=== PATIENT | male | born 1990 | race African-American/Black ===

== ENCOUNTER 2021-03-03 23:46 | Emergency (ER) | payer OTHER ==
[2021-03-04 01:12] LABS: Absolute Lymphocytes (CBC) 0.7 K/uL (0.7-4.9); Basophils % 0.6 % (0-1.3); Hematocrit 47.8 % (39.6-49.0); MPV 11.1 fL (7.6-11.3); RBC Red Blood Cell Count 5.57 M/uL (4.33-5.43)
[2021-03-04] MEDS ORDERED: ONDANSETRON 4 MG/2 ML VIAL ONE (01:27)
[2021-03-04] MEDS ORDERED: MORPHINE 4 MG/ML SYR ONE (01:27)
[2021-03-04] MEDS ORDERED: NA CHLORIDE 0.9% 1,000 ML ONE (01:27)
[2021-03-04 02:10] LABS: Bilirubin Direct 0.2 mg/dL (0-0.2); Bilirubin Total 0.7 mg/dL (0.2-1.0); Potassium 4.4 mmol/L (3.5-5.1); Protein, Total 7.5 g/dL (6.4-8.2)
[2021-03-04] MEDS ORDERED: PANTOPRAZOLE 40 MG INJ ONE (02:24)
--- NOTE | 2021-03-04 03:14 | ER ---
Nurse's Notes [facility] Name: Harpal Booker Age: 30 yrs Sex: Male : 1990 Arrival Date: 03/03/2021 Time: 23:47 Bed 6 Private MD: Diagnosis: Abdominal pain. Vomiting Presentation: 03/03 23:49 Chief complaint: Patient states: N/V/D, started yesterday evening and vomited blood bs2 today, upper abdomen pain on both sides. Coronavirus screen: Client denies travel out of the [place] in the last 14 days. At this time, the client does not indicate any symptoms associated with coronavirus-19. Ebola Screen: Patient negative for fever greater than or equal to 101.5 degrees Fahrenheit, and additional compatible Ebola Virus Disease symptoms Patient denies exposure to infectious person. Patient denies travel to an Ebola-affected area in the 21 days before illness onset. No symptoms or risks identified at this time. Initial Sepsis Screen: Does the patient meet any 2 criteria? No. Patient's initial sepsis screen is negative. Does the patient have a suspected source of infection? No. Patient's initial sepsis screen is negative. Risk Assessment: Do you want to hurt yourself or someone else? Patient reports no desire to harm self or others. Onset of symptoms was March 02, 2021. 23:49 Method Of Arrival: [employer] Enforcement: [place] [employer] bs2 23:49 Acuity: FRANCO 3 bs2 Triage Assessment: 23:52 General: Appears uncomfortable, slender, well groomed, well developed, well nourished, bs2 Behavior is calm, cooperative, appropriate for age, anxious. Pain: Complains of pain in right upper quadrant and left upper quadrant Pain does not radiate. Pain currently is 8 out of 10 on a pain scale. GI: Reports upper abdominal pain, diarrhea, intolerance of fluids, intolerance of food, nausea, vomiting. Historical: - Allergies: 23:52 No Known Allergies; bs2 - Home Meds: 23:52 None [Active]; bs2 - PMHx: 23:52 Asthma; bs2 - PSHx: 23:52 None; bs2 - Immunization history:: Adult Immunizations. - Social history:: Patient uses street drugs, marijuana, K2, Smoking status: Patient reports the use of cigarette tobacco products, denies chronic smoking, but will smoke occasionally. Screenin:54 Abuse screen: Denies threats or abuse. Denies injuries from another. Nutritional bs2 screening: No deficits noted. Tuberculosis screening: No symptoms or risk factors identified. Fall Risk None identified. Assessment: 03/04 03:14 General: Appears uncomfortable, slender, well groomed, well developed, well nourished, bs2 Behavior is calm, cooperative, appropriate for age. Pain: Complains of pain in abdomen Pain currently is 8 out of 10 on a pain scale. GI: Bowel sounds present X 4 quads. Abd is soft and non tender X 4 quads. Abd is non tender X 4 quads Reports upper abdominal pain, diarrhea, intolerance of fluids, intolerance of food, nausea, vomiting. 03:23 Reassessment: Dr. Ritter at bedside to discuss results with patient; patient reports lp1 continued nausea and abdominal pain; Verbal order for Zofran 4mg PO. Vital Signs: 03/03 23:49 BP 168 / 111 LA Sitting (auto/reg); Pulse 59 MON; Resp 22 S; Temp 97.8(O); Pulse Ox 98% bs2 on R/A; Weight 77.11 kg (R); Height 5 ft. 9 in. (175.26 cm) (R); Pain 8/10; 23:49 Body Mass Index 25.10 (77.11 kg, 175.26 cm) bs2 ED Course: 23:47 Patient arrived in ED. bs2 23:50 Dawson Ritter MD is Attending Physician. pkl 23:51 Triage completed. bs2 23:52 Arm band placed on right wrist. bs2 23:54 Patient has correct armband on for positive identification. Bed in low position. Side bs2 rails up X2. Pulse ox on. NIBP on. [employer] officers at bedside. 03/04 01:10 Basic Metabolic Panel Sent. bs2 01:10 CBC with Diff Sent. bs2 01:11 Hepatic Function Sent. bs2 01:11 Lipase Sent. bs2 02:30 CT Abd/Pelvis - IV Contrast Only In Process Unspecified. EDMS 03:14 No provider procedures requiring assistance completed. bs2 03:24 IV discontinued, No redness/swelling at site. Pressure dressing applied. lp1 Administered Medications: 01:10 Drug: NS 0.9% 1000 ml Route: IV; Rate: 1000 ml; Site: left antecubital; bs2 01:10 Drug: morphine 4 mg Route: IVP; Site: left antecubital; bs2 02:07 Follow up: Response: Pain is unchanged, physician notified bs2 01:10 Drug: Zofran (Ondansetron) 4 mg Route: IVP; Site: left antecubital; bs2 02:07 Follow up: Response: No adverse reaction bs2 02:07 Drug: ProTONIX (pantoprazole) 40 mg Route: IVP; Site: left antecubital; bs2 02:17 Follow up: Response: No adverse reaction bs2 03:23 Drug: Zofran (Ondansetron) 4 mg {Note: Verbal order.} Route: PO; lp1 03:25 Follow up: Response: Medication administered at discharge. lp1 Outcome: 03:13 Discharge ordered by . lesia 03:25 Discharged to Law Enforcement lp1 03:25 Condition: stable 03:25 Discharge instructions given to patient, Instructed on discharge instructions, follow up and referral plans. medication usage, Demonstrated understanding of instructions, follow-up care, medications, Prescriptions given X 1. 03:25 Discharged to [employer] bs2 03:25 Condition: improved 03:25 Discharge instructions given to patient, police, Instructed on Prescriptions given X 1. 03:26 Patient left the ED. lp1 Signatures: Dispatcher [employer] EDMS Dawson Ritter MD MD pkl Pena, Laura, RN RN lp1 Yuliet Augustin bs2
--- NOTE | 2021-03-04 03:14 | EDPHYS ---
Physician Documentation [facility] Name: Harpal Booker Age: 30 yrs Sex: Male : 1990 Arrival Date: 03/03/2021 Time: 23:47 Bed 6 Private MD: ED Physician Dawson Ritter HPI: 03/04 02:42 This 30 yrs old Black Male presents to ER via Law Enforcement with complaints of pkl Abdominal Pain, Nausea/Vomiting/Diarrhea. 02:42 Onset: The symptoms/episode began/occurred yesterday, and became worse today. The pkl symptoms do not radiate. Patient said he noticed blood in the vomitus. Historical: - Allergies: 03/03 23:52 No Known Allergies; bs2 - Home Meds: 23:52 None [Active]; bs2 - PMHx: 23:52 Asthma; bs2 - PSHx: 23:52 None; bs2 - Immunization history:: Adult Immunizations. - Social history:: Patient uses street drugs, marijuana, K2, Smoking status: Patient reports the use of cigarette tobacco products, denies chronic smoking, but will smoke occasionally. ROS: 03/04 02:42 Eyes: Negative for injury, pain, redness, and discharge, ENT: Negative for injury, pkl pain, and discharge, Neck: Negative for injury, pain, and swelling, Cardiovascular: Negative for chest pain, palpitations, and edema, Respiratory: Negative for shortness of breath, cough, wheezing, and pleuritic chest pain. Abdomen/GI: Positive for abdominal pain, vomiting, of the right upper quadrant and left upper quadrant. Back: Negative for acute changes. : Negative for urinary symptoms. MS/extremity: Negative for acute changes. Skin: Negative for rash. Neuro: Negative for altered mental status, loss of consciousness. Exam: 02:42 Head/Face: Normocephalic, atraumatic. Eyes: Pupils equal round and reactive to light, pkl extra-ocular motions intact. Lids and lashes normal. Conjunctiva and sclera are non-icteric and not injected. Cornea within normal limits. Periorbital areas with no swelling, redness, or edema. ENT: Nares patent. No nasal discharge, no septal abnormalities noted. Tympanic membranes are normal and external auditory canals are clear. Oropharynx with no redness, swelling, or masses, exudates, or evidence of obstruction, uvula midline. Mucous membranes moist. Neck: Trachea midline, no thyromegaly or masses palpated, and no cervical lymphadenopathy. Supple, full range of motion without nuchal rigidity, or vertebral point tenderness. No Meningismus. Chest/axilla: Normal chest wall appearance and motion. Nontender with no deformity. No lesions are appreciated. Cardiovascular: Regular rate and rhythm with a normal S1 and S2. No gallops, murmurs, or rubs. Normal PMI, no JVD. No pulse deficits. Respiratory: Lungs have equal breath sounds bilaterally, clear to auscultation and percussion. No rales, rhonchi or wheezes noted. No increased work of breathing, no retractions or nasal flaring. Abdomen/GI: Soft, non-tender, with normal bowel sounds. No distension or tympany. No guarding or rebound. No evidence of tenderness throughout. Back: No spinal tenderness. No costovertebral tenderness. Full range of motion. Skin: Warm, dry with normal turgor. Normal color with no rashes, no lesions, and no evidence of cellulitis. MS/ Extremity: Pulses equal, no cyanosis. Neurovascular intact. Full, normal range of motion. Neuro: Awake and alert, GCS 15, oriented to person, place, time, and situation. Cranial nerves II-XII grossly intact. Motor strength 5/5 in all extremities. Sensory grossly intact. Cerebellar exam normal. Normal gait. Vital Signs: 03/03 23:49 BP 168 / 111 LA Sitting (auto/reg); Pulse 59 MON; Resp 22 S; Temp 97.8(O); Pulse Ox 98% bs2 on R/A; Weight 77.11 kg (R); Height 5 ft. 9 in. (175.26 cm) (R); Pain 8/10; 23:49 Body Mass Index 25.10 (77.11 kg, 175.26 cm) bs2 MDM: 23:50 Patient medically screened. pkl 03/04 03:12 Data reviewed: vital signs, nurses notes, lab test result(s), radiologic studies, CT pkl scan. 03/04 00:31 Order name: Basic Metabolic Panel; Complete Time: 02:41 pkl 03/04 00:31 Order name: CBC with Diff; Complete Time: 02:41 pkl 03/04 00:31 Order name: Hepatic Function; Complete Time: 02:41 pkl 03/04 00:31 Order name: Lipase; Complete Time: 02:41 pkl 03/04 00:31 Order name: CT Abd/Pelvis - IV Contrast Only pkl 03/04 00:31 Order name: IV Saline Lock; Complete Time: 01:10 pkl 07 00:31 Order name: Labs collected and sent; Complete Time: 01:10 pkl Administered Medications: 01:10 Drug: NS 0.9% 1000 ml Route: IV; Rate: 1000 ml; Site: left antecubital; bs2 01:10 Drug: morphine 4 mg Route: IVP; Site: left antecubital; bs2 02:07 Follow up: Response: Pain is unchanged, physician notified bs2 01:10 Drug: Zofran (Ondansetron) 4 mg Route: IVP; Site: left antecubital; bs2 02:07 Follow up: Response: No adverse reaction bs2 02:07 Drug: ProTONIX (pantoprazole) 40 mg Route: IVP; Site: left antecubital; bs2 02:17 Follow up: Response: No adverse reaction bs2 03:23 Drug: Zofran (Ondansetron) 4 mg {Note: Verbal order.} Route: PO; lp1 03:25 Follow up: Response: Medication administered at discharge. lp1 Disposition Summary: 03/04/21 03:13 Discharge Ordered Location: Home pkl Problem: new pkl Symptoms: have improved pkl Condition: Stable pkl Diagnosis - Abdominal pain. Vomiting pkl Followup: pkl - With: Private Physician - When: 1 - 2 days - Reason: Re-evaluation by your physician Discharge Instructions: - Discharge Summary Sheet pkl Forms: - Medication Reconciliation Form pkl - Thank You Letter pkl - Antibiotic Education pkl - Prescription Opioid Use pkl Prescriptions: - Zofran 4 mg Oral Tablet - take 1 tablet by ORAL route every 12 hours As needed; 6 tablet; Refills: 0, pkl Product Selection Permitted Signatures: Dispatcher [employer] Dawson Tian MD MD pkl Isela Murphy RN RN lp1 Yuliet Augustin bs2
[2021-03-04 03:36] VITALS: BP 168/111; TEMP 97.8; O2SAT 98
[2021-03-04] MEDS ORDERED: ONDANSETRON 4 MG (ODT) TAB ONE (03:42)
--- NOTE | 2021-03-05 11:25 | RAD REPORT ---
EXAM DESCRIPTION: CT - Abdomen Pelvis W Contrast - 03/04/2021 6:43 am CLINICAL HISTORY: The patient is 30 years old and is Male; ABD PAIN TECHNIQUE: Axial computed tomography images of the abdomen and pelvis with intravenous contrast. S agittal and coronal reformatted images were created and reviewed. This CT exam was performed using one or more of the following dose reduction techniques: automated exposure control, adjustment of t he mA and/or kV according to patient size, and/or use of iterative reconstruction technique. COMPARISON: No relevant prior studies available. FINDINGS: Limitations: Evaluation limited by a paucity of intra-abdominal fat. Lung bases: Unremarkable. No mass. No consolidation. ABDOMEN: Liver: Unremarkable. No mass. Gallbladder and bile ducts: Unremarkable. No calcified stones. No ductal dilation. Pancreas: Unremarkable. No mass. No ductal dilation. Spleen: Unremarkable. No splenomegaly. Adrenals: Unremarkable. No mass. Kidneys and ureters: Unremarkable. No solid mass. No hydronephrosis. Stomach and bowel: Unremarkable. No obstruction. No mucosal thickening. PELVIS: Appendix: No findings to suggest acute appendicitis. Bladder: Unremarkable. No mass. Reproductive: Unremarkable as visualized. ABDOMEN and PELVIS: Intraperitoneal space: Unremarkable. No free air. No significant fluid collection. Bones/joints: No acute fracture. No dislocation. Soft tissues: See above. Vasculature: Unremarkable. No abdominal aortic aneurysm. Lymph nodes: Unremarkable. No enlarged lymph nodes. IMPRESSION: No acute findings in the abdomen or pelvis. Electronically signed by: Bayron Verde MD 03/04/2021 2:50 AM CDT Due to temporary technical issues with the PACS/Fluency reporting system, reports are being signed by the in house radiologist without review as a courtesy to ensure prompt reporting. The interpreting r adiologist is fully responsible for the content of the report.
== END 2021-03-04 03:26 | disposition home or self-care (01) ==
LOC: ER 23:46
DX: R11.10 Vomiting, unspecified (principal); F17.210 Nicotine dependence, cigarettes, uncomplicated
CPT/HCPCS: 85025; 80048; 36415; 80076; 83690; 74177; 96375; 96374; 99284; Q9967; J2405; C9113; J7030